=== PATIENT | female | born 1995 | race Caucasian/White ===

== ENCOUNTER 2024-06-26 22:06 | Emergency (ER) | payer MEDICAID, SELFPAY ==
[2024-06-26 22:07] VITALS: BMI 20.5
[2024-06-26 22:43] VITALS: BP 149/90; PULSE 90; RESP 18; TEMP 36.5; O2SAT 99
--- NOTE | 2024-06-26 23:01 | PD.EDRME ---
Rapid Medical Screening Exam RME Arrival date/time: 06/26/24 22:06 Chief Complaint: Skin/Abscess/Foreign Body Vital signs: Vital Signs Temperature 97.7 F 06/26/24 22:43 Pulse Rate 90 06/26/24 22:43 Respiratory Rate 18 06/26/24 22:43 Blood Pressure 149/90 H 06/26/24 22:43 Pulse Oximetry (%) 99 06/26/24 22:43 Oxygen Delivery Method Room Air 06/26/24 22:43 E Narrative: Patient concerned there is a hookworm in left eye.
--- NOTE | 2024-06-26 23:45 | PC.NURSE ---
called pt no answer
--- NOTE | 2024-06-27 00:04 | PC.NURSE ---
no answer at er lobby or outside er to be put to lobby
== END 2024-06-27 00:06 | disposition left against medical advice (07) ==
LOC: SERX 23:07
PROVIDERS: Emergency Provider Emergency Medicine; PCP Family Medicine; Referring Provider Emergency Medicine
DX: L02.91 Cutaneous abscess, unspecified (principal); Z53.29 Procedure and treatment not carried out because of patient's decision for other reasons
CPT/HCPCS: 99281

== ENCOUNTER 2024-07-04 11:25 | Emergency (ER) | payer MEDICAID, SELFPAY ==
--- NOTE | 2024-07-04 12:08 | PC.NURSE ---
CALLED PT BACK, NO ANSWER AT THIS TIME
--- NOTE | 2024-07-04 12:41 | XR_ITS ---
Examination: Abdomen AP single view Technique: AP portable supine abdomen, single view Exam date and time: July 04, 2024 1305 hrs. Indications: Abdominal pain beginning 3 days ago. Findings: Moderate stool throughout colon No obstruction No free air The osseous structures are intact Impression: Nonobstructive bowel gas pattern
[2024-07-04 12:47] VITALS: BP 113/84; PULSE 82; RESP 18; TEMP 36.6; O2SAT 100; BMI 19.0
--- NOTE | 2024-07-04 13:39 | PD.EDABDPN ---
ED Abdominal Pain RME/HPI General Chief Complaint: Abdominal Pain Stated complaint: SEVERE ABDOMINAL PAIN X1 WEEK Time seen by provider: 07/04/24 12:41 Arrival date/time: 07/04/24 11:25 28-year-old female with history of anxiety presents emergency department today complaints of abdominal pain ongoing x 1 week patient reports she has rash to her arms patient believes that she has parasites she reports these are causing the rash to her arms and her abdominal pain patient reports she seen her primary care doctor who ordered lab work she is awaiting the results and follow-up patient is requesting x-ray of her abdomen Limitations: no limitations Related Data Home Medications ?Medication ?Instructions ?Recorded ?Confirmed lorazepam 1 mg tablet 0.5 mg PO BID 11/27/20 11/27/20 Previous Rx's ?Medication ?Instructions ?Recorded naproxen 500 mg tablet 500 mg PO BID #30 tabs 08/27/23 Allergies Allergy/AdvReac Type Severity Reaction Status Date / Time montelukast Allergy Unknown [place] Verified 07/04/24 11:28 Review of Systems Review of Systems Systems Reviewed: All systems reviewed, normal except as documented Constitutional Constitutional: Reports system reviewed and no additional complaints, except as documented, Denies fever(s) and Denies headache(s) Eyes Eyes: Reports system reviewed and no additional complaints, except as documented and Denies blurry vision ENT Ears, Nose, Mouth, and Throat: Reports system reviewed and no additional complaints, except as documented, Denies headache(s), Denies nasal congestion and Denies nasal discharge Cardiovascular Cardiovascular: Reports system reviewed and no additional complaints, except as documented, Denies chest pain and Denies dyspnea Respiratory Respiratory: Reports system reviewed and no additional complaints, except as documented, Denies chest congestion, Denies cough and Denies dyspnea Gastrointestinal Gastrointestinal: Reports system reviewed and no additional complaints, except as documented and Reports abdominal pain Integumentary/Breasts Skin/Breast: Reports system reviewed and no additional complaints, except as documented, Reports pruritus and Reports rash Neurologic Neurologic: Reports system reviewed and no additional complaints, except as documented, Reports as per HPI and Denies headache(s) Past Medical History Past Medical History NEUROLOGIC: Negative Neurological Disorders CARDIAC: Negative Cardiac Disorders or Congestive Heart Failure RESPIRATORY: Positive Asthma; Negative Chronic Obstructive Pulmonary Disease (COPD) GASTROINTESTINAL: Negative Gastrointestinal Disorders or Hepatitis GENITOURINARY: Negative Genitourinary Disorders or Renal Disease REPRODUCTIVE: Negative Genital Herpes, Gonorrhea, Pelvic Inflammatory Disease or Syphilis MUSCULOSKELETAL: Negative Musculoskeletal Disorders ENT: Positive Ear Infection ENDOCRINE: Negative Endocrine Disorders, Diabetes Mellitus Type 1 or Diabetes Mellitus Type 2 HEMATOLOGIC: Negative Blood Disorders, Anemia, Leukemia, Hemophilia, Thalassemia, Sickle Cell Disease or Clotting Problems PSYCHO/SOCIAL: Positive Anxiety OTHER HISTORY: Positive Chicken Pox; Negative Hospitalization, Autoimmune Disease, Down Syndrome, Developmental Delay, Shingles, Falls, Blood Transfusions, Blood Transfusion Reaction, Anesthesia Reactions, Organ Transplant, Chemotherapy, Radiation Therapy, Hyperbaric Therapy, MRSA, VRSA, Vancomycin-Resistant Enterococci, Human Immunodeficiency Virus (HIV), Measles, Mumps, Rubella ([place] Measles), Pertussis, Clostridium Difficile or Cancer Family History FAMILY HISTORY: Positive Family Respiratory Disorders, Family Cancer and Family Surgery; Negative Family Psychiatric Problems, Family Cardiac Disorders, Family Gastrointestinal Problems or Family Anesthesia Reaction Surgical History SURGICAL: Negative Endocrine Surgery, Thyroidectomy, Ear Surgery, Abdominal Surgery, Nephrectomy, Joint Replacement, Neurologic Surgery, Brain Shunt, Mastectomy, Lumpectomy, Hysterectomy, Tubal Ligation, Section or Organ Transplant Social History SMOKING STATUS: Current every day smoker SECOND HAND EXPOSURE: No SUBSTANCE USE: does not use ED Exam General Limitations: Present no limitations General appearance: Present alert and in no apparent distress Head Head exam: Present atraumatic, normocephalic and normal inspection Eye Eye exam: Present normal appearance, PERRL and EOMI; Absent conjunctival injection ENT ENT exam: Present normal exam, normal oropharynx and mucous membranes moist Neck Neck exam: Present normal inspection, full ROM and trachea midline Chest Chest inspection: Present normal inspection and symmetric chest wall rise Respiratory Respiratory exam: Present normal lung sounds bilaterally Cardiovascular Cardiovascular exam: Present regular rate, normal rhythm and normal heart sounds Abdominal Exam Abdominal exam: Present soft and normal bowel sounds; Absent distention, tenderness, guarding, rebound or rigidity Extremities Exam Extremities exam: Present normal inspection and full ROM Back Exam Back exam: Present normal inspection and full ROM Neurological Exam Neurological exam: Present alert, oriented X3, CN II-XII intact, normal gait and reflexes normal; Absent motor sensory deficit Psychiatric Psychiatric exam: Present anxious Skin Skin exam: Present warm, dry and other (Skin sores) Course Quality Measures none Orders Category Date Time Status XR abdomen 1V Stat Exams 07/04/24 12:41 Completed Vital Signs Vital signs: Vital Signs Temperature 97.9 F 07/04/24 12:47 Pulse Rate 82 07/04/24 12:47 Respiratory Rate 18 07/04/24 12:47 Blood Pressure 113/84 07/04/24 12:47 Pulse Oximetry (%) 100 07/04/24 12:47 Oxygen Delivery Method Room Air 07/04/24 12:47 O2 saturation 100% room air within normal limits Abdominal Pain MDM MDM Narrative MDM Narrative:: 28-year-old female with history of anxiety presents emergency department today complaints of abdominal pain ongoing x 1 week patient reports she has rash to her arms patient believes that she has parasites she reports these are causing the rash to her arms and her abdominal pain patient reports she seen her primary care doctor who ordered lab work she is awaiting the results and follow-up patient is requesting x-ray of her abdomen Patient assures me she is not On exam patient does not appear ill or toxic and in no acute distress Imaging obtained patient refused lab work care Patient discharged home in no distress to follow-up with primary care doctor in the next 24 to 48 hours and for any worsening symptoms to return to the ER immediately Patient data External records reviewed:: [facility] previous records Clinical information provided by:: parent Social determinants that could affect healthcare access:: none Patient has the following chronic illnesses:: none How is presenting disease/condition affected by chronic disease/condition?: no chronic disease Evaluation data The following diagnostics were reviewed and interpreted by me:: radiology exam(s) Lab and/or radiology exams considered but not ordered:: radiology obtained Interpretation Summary: Reviewed by me Medications / Prescriptions Medications or Prescriptions considered but not ordered:: Given Medication administrations:: Given Consultations Consultation(s) initiated? (list below): No Diagnosis Differential diagnosis abdominal pain: abdominal pain, gastroenteritis, pancreatitis and other (Anxiety) Most likely diagnosis given after review of the tests above:: Anxiety Admission Indicated Admission indicated?: not indicated Admission Request Was there a request for admission?: No Disposition Plan Disposition Plan: Discharge Discharge Attestation Discharge Attestation: The patient and all family members were given an opportunity to ask questions and understood the discharge instructions. Discharge instructions specifically effects, indications for sooner follow up or return to the emergency department, and the expected course of current diagnosis. Patient condition: Stable Discharge Plan Plan Patient Disposition: HOME (Self Care) Disposition Comment: Stable Prescriptions/Referrals Prescriptions/Med Rec: No Action lorazepam 1 mg tablet 0.5 mg PO BID naproxen 500 mg tablet 500 mg PO BID Qty: 30 0RF Referrals: No Primary/Family,Physician [Primary Care Provider] - 07/05/24 Problem List Clinical Impression: Abdominal pain, Constipation, Rash, Anxiety Patient/Caregiver Discharge Instructions Education Materials: Abdominal Pain Additional Instructions: Please follow up with your primary care doctor in the next 24-48hrs for any worsening symptoms return here immediately Print Language: Cymro Stand Alone Forms: Karishma Award Info., Patient Portal Info Letter PA/PATIENT ACCOUNTING REPRESENTATIVE Supervising Physician PA/PATIENT ACCOUNTING REPRESENTATIVE Supervising Physician: Dr Sánchez
== END 2024-07-04 13:59 | disposition home or self-care (01) ==
PROVIDERS: Emergency Provider Emergency Medicine
DX: K59.00 Constipation, unspecified (principal); R21 Rash and other nonspecific skin eruption; F41.9 Anxiety disorder, unspecified
CPT/HCPCS: 74018; 99283